=== PATIENT | female | born 1960 | race Caucasian/White ===

== ENCOUNTER 2022-11-17 16:22 | Inpatient (IN) | payer OTHER ==
[~2022-11-17] VITALS: Ht 154.9 cm; Wt 68.2 kg
[2022-11-17 16:32] VITALS: BP 140/91
[2022-11-17] MEDS ORDERED: OLANZAPINE20 M2 PO (16:46)
[2022-11-17] MEDS ORDERED: MELOXICAM7.5 MG PO (16:46)
[2022-11-17] MEDS ORDERED: BUSPAR5 MG PO (16:48)
[2022-11-17] MEDS ORDERED: LOSARTAN POTASS25 M1 PO (16:50)
[2022-11-17] MEDS ORDERED: MELATONIN5 M7 PO (16:51)
[2022-11-17] MEDS ORDERED: MEXILETINE HCL150 MG PO (16:51)
[2022-11-17] MEDS ORDERED: ALDACTONE25 MG PO (16:52)
[2022-11-17] MEDS ORDERED: ASPIRIN ADULT L81 M2 PO (16:52)
[2022-11-17] MEDS ORDERED: ESCITALOPRAM OX20 MG PO (16:53)
[2022-11-17] MEDS ORDERED: [UNRECOGNIZED DRUG - OTHER] PO (16:53)
[2022-11-17] MEDS ORDERED: CALCIUM PO (16:53)
[2022-11-17] MEDS ORDERED: Synthroid,Levo25 MCG PO (16:54)
[2022-11-17] MEDS ORDERED: FAMOTIDINE20 M1 PO (16:54)
[2022-11-17] MEDS ORDERED: METOPROLOL SUCC50 M1 PO (16:55)
[2022-11-17] MEDS ORDERED: SIMVASTATIN40 MG PO (16:55)
[2022-11-17] MEDS ORDERED: GABAPENTIN100 M2 PO (16:55)
[2022-11-17] MEDS ORDERED: HYDROXYZINE PAM25 M1 PO (16:56)
[2022-11-17] MEDS ORDERED: GOOD SENSE ALLE10 M2 PO (16:56)
[2022-11-17] MEDS ORDERED: FUROSEMIDE20 M1 PO (16:57)
[2022-11-17] MEDS ORDERED: VITAMIN E180 M1 PO (16:58)
[2022-11-17] MEDS ORDERED: DONEPEZIL HYDROC5 MG PO (16:58)
[2022-11-17] MEDS ORDERED: COLESTIPOL HYDRO1 GM PO (16:59)
[2022-11-17] MEDS ORDERED: ZINC GLUCONATE50 MG PO (16:59)
[2022-11-17] MEDS ORDERED: ASCORBIC ACID500 M2 PO (17:00)
[2022-11-17 17:09] LABS: BASO % 0.5 % (0.0-1.0); EOS % 0.7 % (1.0-4.0); HEMATOCRIT 37.2 % (37.0-47.0); LYMPH # 1.6 10*3/uL (1.3-4.4); LYMPH % 29.4 % (27.0-41.0); MEAN CELL VOLUME 86.9 fl (81.0-99.0); MEAN CORPUSCULAR HGB 27.8 pg (27.0-31.0); MONO # 0.8 10*3/uL (0.1-1.0); MONO % 13.7 % (3.0-9.0); NEUT % 55.5 % (47.0-73.0); PLATELET COUNT AUTOMATED 270 10*3/uL (130-400); RED BLOOD COUNT 4.28 10*6/uL (4.10-5.10); RED CELL DISTRI WIDTH 12.4 % (0-14.5); WHITE BLOOD COUNT 5.5 10*3/uL (4.8-10.8)
[2022-11-17 17:22] LABS: ACT PARTIAL THROMBO TIME 28.2 SECONDS (20.0-32.1)
[2022-11-17 17:24] LABS: ALKALINE PHOSPHATASE 67 U/L (46-116); BUN 6 mg/dl (9-23); CHLORIDE 93 mmol/L (98-107); POTASSIUM 4.2 mmol/L (3.4-5.1); SGPT/ALT 22 U/L (10-49); TOTAL PROTEIN 6.7 gm/dL (6.0-8.0)
[2022-11-17 20:29] VITALS: BP 143/93
[2022-11-17] MEDS ORDERED: RESTASIS1 EACH OP (20:30)
[2022-11-17 20:34] VITALS: BP 148/71
[2022-11-18] VITALS: BP 134/75
[2022-11-18 06:13] LABS: HEMATOCRIT 36.3 % (37.0-47.0); MEAN CELL VOLUME 84.8 fl (81.0-99.0); MEAN CORPUSCULAR HGB 27.8 pg (27.0-31.0); MEAN CORPUSCULAR HGB CONC 32.8 g/dl (33.0-37.0); MEAN PLATELET VOLUME 10.5 fl (9.6-12.3); PLATELET COUNT AUTOMATED 268 10*3/uL (130-400); RED BLOOD COUNT 4.28 10*6/uL (4.10-5.10); RED CELL DISTRI WIDTH 12.1 % (0-14.5); WHITE BLOOD COUNT 7.3 10*3/uL (4.8-10.8)
[2022-11-18 06:24] LABS: MANUAL DIFF REFLEX YES
[2022-11-18 07:01] LABS: PLATELET SUFFICIENCY NORMAL (NORMAL); TOTAL CELLS COUNTED 100 #CELLS
[2022-11-18 08:00] VITALS: BP 111/48
[2022-11-18 08:50] LABS: ALKALINE PHOSPHATASE 61 U/L (46-116); CHLORIDE 91 mmol/L (98-107); CHOLESTEROL 138 mg/dL (<200); LDL CHOLESTEROL 60 mg/dL (9-159); POTASSIUM 4.2 mmol/L (3.4-5.1); SGPT/ALT 19 U/L (10-49); THYROID STIM HORMONE (HS) 0.756 uIU/ml (0.550-4.780); TOTAL PROTEIN 6.5 gm/dL (6.0-8.0); TRIGLYCERIDES 56 mg/dl (<150)
[2022-11-18 08:53] LABS: BUN < 5 mg/dl (9-23)
[2022-11-18 12:00] VITALS: BP 111/47
[2022-11-18] MEDS ORDERED: PREDNISONE10 MG PO (14:10)
[2022-11-18] MEDS ORDERED: CYCLOBENZAPRINE10 MG PO (14:10)
== END 2022-11-18 16:14 | disposition home or self-care (01) | DRG 351 ==
LOC: ED 16:22 → EDHOLD 18:44 → 4E 18:44
PROVIDERS: Emergency Medicine; Internal Medicine; ADMIT Family Medicine; ATTEND Family Medicine
DX: M13.851 Other specified arthritis, right hip (principal); E87.1 Hypo-osmolality and hyponatremia; I49.9 Cardiac arrhythmia, unspecified; F41.9 Anxiety disorder, unspecified; I50.9 Heart failure, unspecified; E03.9 Hypothyroidism, unspecified; F03.A0 Unspecified dementia, mild, without behavioral disturbance, psychotic disturbance, mood disturbance, and anxiety; E87.8 Other disorders of electrolyte and fluid balance, not elsewhere classified; R73.9 Hyperglycemia, unspecified; D35.00 Benign neoplasm of unspecified adrenal gland; D64.9 Anemia, unspecified; F33.9 Major depressive disorder, recurrent, unspecified; G62.9 Polyneuropathy, unspecified; I11.0 Hypertensive heart disease with heart failure; E78.2 Mixed hyperlipidemia; E78.5 Hyperlipidemia, unspecified; R26.2 Difficulty in walking, not elsewhere classified; M62.830 Muscle spasm of back; Z98.891 History of uterine scar from previous surgery; Z80.3 Family history of malignant neoplasm of breast; Z88.0 Allergy status to penicillin; Z79.82 Long term (current) use of aspirin; Z79.899 Other long term (current) drug therapy

== ENCOUNTER 2022-11-29 13:02 | Inpatient (IN) | payer OTHER ==
[~2022-11-29] VITALS: Ht 154.9 cm; Wt 72.6 kg
[~2022-11-29 13:02] MED LIST: ALDACTONE25 MG PO; ASCORBIC ACID500 M2 PO; ASPIRIN ADULT L81 M2 PO; BUSPAR5 MG PO; CALCIUM PO; COLESTIPOL HYDRO1 GM PO; CYCLOBENZAPRINE10 MG PO; DONEPEZIL HYDROC5 MG PO; ESCITALOPRAM OX20 MG PO; FAMOTIDINE20 M1 PO; FUROSEMIDE20 M1 PO; GABAPENTIN100 M2 PO; GOOD SENSE ALLE10 M2 PO; HYDROXYZINE PAM25 M1 PO; LOSARTAN POTASS25 M1 PO; MELATONIN5 M7 PO; MELOXICAM7.5 MG PO; METOPROLOL SUCC50 M1 PO; MEXILETINE HCL150 MG PO; OLANZAPINE20 M2 PO; PREDNISONE10 MG PO; RESTASIS1 EACH OP; SIMVASTATIN40 MG PO; Synthroid,Levo25 MCG PO; VITAMIN E180 M1 PO; ZINC GLUCONATE50 MG PO; [UNRECOGNIZED DRUG - OTHER] PO
[2022-11-29 13:34] VITALS: BP 139/63
[2022-11-29 13:52] LABS: BASO % 0.1 % (0.0-1.0); EOS # 0.1 10*3/uL (0.0-0.4); EOS % 0.6 % (1.0-4.0); HEMATOCRIT 34.5 % (37.0-47.0); LYMPH # 1.1 10*3/uL (1.3-4.4); LYMPH % 9.8 % (27.0-41.0); MEAN CELL VOLUME 78.8 fl (81.0-99.0); MEAN CORPUSCULAR HGB 28.5 pg (27.0-31.0); MEAN CORPUSCULAR HGB CONC 36.2 g/dl (33.0-37.0); MEAN PLATELET VOLUME 9.4 fl (9.6-12.3); MONO # 0.9 10*3/uL (0.1-1.0); MONO % 7.8 % (3.0-9.0); NEUT # 9.3 10*3/uL (2.3-7.9); NEUT % 81.3 % (47.0-73.0); PLATELET COUNT AUTOMATED 282 10*3/uL (130-400); RED BLOOD COUNT 4.38 10*6/uL (4.10-5.10); RED CELL DISTRI WIDTH 11.5 % (0-14.5); WHITE BLOOD COUNT 11.4 10*3/uL (4.8-10.8)
[2022-11-29 14:07] LABS: ALKALINE PHOSPHATASE 72 U/L (46-116); POTASSIUM 3.9 mmol/L (3.4-5.1); SGPT/ALT 27 U/L (10-49); TOTAL PROTEIN 6.9 gm/dL (6.0-8.0)
[2022-11-29 14:09] LABS: BUN < 5 mg/dl (9-23)
[2022-11-29 14:11] LABS: CHLORIDE 72 mmol/L (98-107)
[2022-11-29 14:33] VITALS: BP 148/97
[2022-11-29] MEDS ORDERED: HYDROXYZINE PAM25 M1 PO (15:02)
[2022-11-29 16:19] VITALS: BP 143/68
[2022-11-29 16:23] LABS: BILIRUBIN Negative (Negative); BLOOD Negative (Negative); CLARITY Clear (Clear); COLOR Yellow (Yellow); GLUCOSE Negative (Negative); KETONE 2+ (Negative); LEUKO ESTERASE Negative (Negative); NITRITE Negative (Negative); PH 7.5 (4.5-8.0); SPECIFIC GRAVITY <= 1.005 (1.001-1.030); UROBILINOGEN 0.2 E.U./dl (0.0-1.0)
[2022-11-29 16:36] LABS: URINE CHLORIDE, RANDOM < 20 mmol/L
[2022-11-29 16:39] LABS: BACTERIA 1+; EPITHELIAL CELLS 0-2; WBC 0-2 wbc/hpf (0-5)
[2022-11-29 18:05] VITALS: BP 142/70
[2022-11-29 18:19] LABS: BUN < 5 mg/dl (9-23); POTASSIUM 4.1 mmol/L (3.4-5.1)
[2022-11-29 18:23] LABS: CHLORIDE 74 mmol/L (98-107)
[2022-11-29 18:30] VITALS: BP 112/58
[2022-11-29] MEDS ORDERED: METAMUCIL660 GM PO (18:56)
[2022-11-29] MEDS ORDERED: VITAMIN A2400 MCG PO (19:02)
[2022-11-29] MEDS ORDERED: VITAMIN C500 M8 PO (19:02)
[2022-11-29 20:00] VITALS: BP 130/72
[2022-11-29 22:34] LABS: CHLORIDE 76 mmol/L (98-107); POTASSIUM 3.9 mmol/L (3.4-5.1)
[2022-11-29 22:39] LABS: BUN < 5 mg/dl (9-23)
[2022-11-30] VITALS: BP 120/60
[2022-11-30 02:02] LABS: CHLORIDE 76 mmol/L (98-107); POTASSIUM 3.6 mmol/L (3.4-5.1)
[2022-11-30 02:03] LABS: BUN < 5 mg/dl (9-23)
[2022-11-30 04:00] VITALS: BP 134/56
[2022-11-30 06:13] LABS: BASO % 0.1 % (0.0-1.0); EOS % 0.1 % (1.0-4.0); HEMATOCRIT 33.3 % (37.0-47.0); LYMPH # 0.9 10*3/uL (1.3-4.4); LYMPH % 6.3 % (27.0-41.0); MEAN CELL VOLUME 80.2 fl (81.0-99.0); MEAN CORPUSCULAR HGB 28.4 pg (27.0-31.0); MEAN CORPUSCULAR HGB CONC 35.4 g/dl (33.0-37.0); MEAN PLATELET VOLUME 9.6 fl (9.6-12.3); MONO # 1.2 10*3/uL (0.1-1.0); MONO % 8.2 % (3.0-9.0); NEUT # 12.4 10*3/uL (2.3-7.9); NEUT % 84.8 % (47.0-73.0); PLATELET COUNT AUTOMATED 268 10*3/uL (130-400); RED BLOOD COUNT 4.15 10*6/uL (4.10-5.10); RED CELL DISTRI WIDTH 11.8 % (0-14.5); WHITE BLOOD COUNT 14.6 10*3/uL (4.8-10.8)
[2022-11-30 06:41] LABS: CHLORIDE 80 mmol/L (98-107); POTASSIUM 3.9 mmol/L (3.4-5.1)
[2022-11-30 06:48] LABS: BUN < 5 mg/dl (9-23)
[2022-11-30 07:10] LABS: CHLORIDE 80 mmol/L (98-107); POTASSIUM 3.9 mmol/L (3.4-5.1)
[2022-11-30 07:14] LABS: BUN < 5 mg/dl (9-23)
[2022-11-30 08:00] VITALS: BP 115/64
[2022-11-30 10:38] LABS: CHLORIDE 80 mmol/L (98-107); POTASSIUM 4.2 mmol/L (3.4-5.1)
[2022-11-30 10:39] LABS: BUN < 5 mg/dl (9-23)
[2022-11-30 12:00] VITALS: BP 112/56
[2022-11-30 15:46] LABS: BUN 5 mg/dl (9-23); CHLORIDE 83 mmol/L (98-107); POTASSIUM 4.1 mmol/L (3.4-5.1)
[2022-11-30 16:00] VITALS: BP 112/58
[2022-11-30 20:00] VITALS: BP 112/45
[2022-11-30 20:23] LABS: BUN 5 mg/dl (9-23); CHLORIDE 83 mmol/L (98-107); POTASSIUM 3.9 mmol/L (3.4-5.1)
[2022-12-01] VITALS: BP 112/68
[2022-12-01 04:00] VITALS: BP 138/67
[2022-12-01 05:38] LABS: CHLORIDE 92 mmol/L (98-107); POTASSIUM 4.1 mmol/L (3.4-5.1)
[2022-12-01 05:40] LABS: BUN < 5 mg/dl (9-23)
[2022-12-01 06:23] LABS: BASO % 0.1 % (0.0-1.0); EOS % 0.1 % (1.0-4.0); HEMATOCRIT 32.7 % (37.0-47.0); LYMPH # 1.1 10*3/uL (1.3-4.4); LYMPH % 9.7 % (27.0-41.0); MEAN CORPUSCULAR HGB 28.3 pg (27.0-31.0); MEAN CORPUSCULAR HGB CONC 33.9 g/dl (33.0-37.0); MEAN PLATELET VOLUME 10.3 fl (9.6-12.3); MONO # 1.3 10*3/uL (0.1-1.0); MONO % 11.8 % (3.0-9.0); NEUT # 8.5 10*3/uL (2.3-7.9); NEUT % 77.9 % (47.0-73.0); PLATELET COUNT AUTOMATED 282 10*3/uL (130-400); RED BLOOD COUNT 3.92 10*6/uL (4.10-5.10); RED CELL DISTRI WIDTH 12.5 % (0-14.5); WHITE BLOOD COUNT 10.8 10*3/uL (4.8-10.8)
[2022-12-01 06:27] LABS: MEAN CELL VOLUME 83.4 fl (81.0-99.0)
[2022-12-01 08:00] VITALS: BP 136/71
[2022-12-01 09:14] LABS: CHLORIDE 89 mmol/L (98-107)
[2022-12-01 09:18] LABS: BUN < 5 mg/dl (9-23)
[2022-12-01 12:00] VITALS: BP 131/67
[2022-12-01 15:11] LABS: CHLORIDE 90 mmol/L (98-107); POTASSIUM 4.5 mmol/L (3.4-5.1)
[2022-12-01 15:12] LABS: BUN < 5 mg/dl (9-23)
[2022-12-01 16:00] VITALS: BP 127/55
[2022-12-01 20:00] VITALS: BP 127/67
[2022-12-02] VITALS: BP 147/79
[2022-12-02 04:00] VITALS: BP 130/76
[2022-12-02 06:01] LABS: CHLORIDE 90 mmol/L (98-107); POTASSIUM 4.6 mmol/L (3.4-5.1)
[2022-12-02 06:05] LABS: BASO % 0.2 % (0.0-1.0); EOS % 0.2 % (1.0-4.0); HEMATOCRIT 31.7 % (37.0-47.0); LYMPH # 1.5 10*3/uL (1.3-4.4); LYMPH % 9.5 % (27.0-41.0); MEAN CELL VOLUME 84.5 fl (81.0-99.0); MEAN CORPUSCULAR HGB 28.3 pg (27.0-31.0); MEAN CORPUSCULAR HGB CONC 33.4 g/dl (33.0-37.0); MEAN PLATELET VOLUME 10.1 fl (9.6-12.3); MONO # 1.4 10*3/uL (0.1-1.0); MONO % 8.6 % (3.0-9.0); NEUT # 13.2 10*3/uL (2.3-7.9); NEUT % 81.1 % (47.0-73.0); PLATELET COUNT AUTOMATED 306 10*3/uL (130-400); RED BLOOD COUNT 3.75 10*6/uL (4.10-5.10); RED CELL DISTRI WIDTH 12.6 % (0-14.5); WHITE BLOOD COUNT 16.2 10*3/uL (4.8-10.8)
[2022-12-02 06:12] LABS: BUN < 5 mg/dl (9-23)
[2022-12-02 08:00] VITALS: BP 151/66
[2022-12-02 12:00] VITALS: BP 152/61
[2022-12-02 15:37] LABS: BUN 5 mg/dl (9-23); CHLORIDE 90 mmol/L (98-107); POTASSIUM 4.5 mmol/L (3.4-5.1)
[2022-12-02 16:00] VITALS: BP 113/69
[2022-12-02 20:00] VITALS: BP 155/71
[2022-12-03] VITALS: BP 132/73
[2022-12-03 06:14] LABS: BASO % 0.1 % (0.0-1.0); HEMATOCRIT 34.5 % (37.0-47.0); LYMPH # 0.5 10*3/uL (1.3-4.4); LYMPH % 4.2 % (27.0-41.0); MEAN CELL VOLUME 84.1 fl (81.0-99.0); MEAN CORPUSCULAR HGB 27.8 pg (27.0-31.0); MEAN PLATELET VOLUME 9.9 fl (9.6-12.3); MONO # 0.7 10*3/uL (0.1-1.0); MONO % 5.8 % (3.0-9.0); NEUT % 89.5 % (47.0-73.0); PLATELET COUNT AUTOMATED 369 10*3/uL (130-400); RED CELL DISTRI WIDTH 12.7 % (0-14.5); WHITE BLOOD COUNT 11.2 10*3/uL (4.8-10.8)
[2022-12-03 06:52] LABS: CHLORIDE 90 mmol/L (98-107); POTASSIUM 4.9 mmol/L (3.4-5.1)
[2022-12-03 07:20] LABS: BUN < 5 mg/dl (9-23)
[2022-12-03 08:00] VITALS: BP 100/77
[2022-12-03 12:00] VITALS: BP 117/55
[2022-12-03 16:00] VITALS: BP 121/62
[2022-12-03 20:00] VITALS: BP 102/63
[2022-12-04] VITALS: BP 136/62
[2022-12-04 08:00] VITALS: BP 135/68
[2022-12-04 09:14] LABS: BUN 10 mg/dl (9-23); CHLORIDE 93 mmol/L (98-107); POTASSIUM 5.1 mmol/L (3.4-5.1)
[2022-12-04 12:00] VITALS: BP 113/59
[2022-12-04 16:00] VITALS: BP 127/64
[2022-12-04 17:41] LABS: BUN 10 mg/dl (9-23); CHLORIDE 96 mmol/L (98-107); POTASSIUM 4.7 mmol/L (3.4-5.1)
[2022-12-04 20:00] VITALS: BP 132/69
[2022-12-05] VITALS: BP 124/78
[2022-12-05 06:50] LABS: BASO % 0.1 % (0.0-1.0); HEMATOCRIT 34.2 % (37.0-47.0); LYMPH # 1.7 10*3/uL (1.3-4.4); LYMPH % 14.2 % (27.0-41.0); MEAN CELL VOLUME 85.7 fl (81.0-99.0); MEAN CORPUSCULAR HGB 27.6 pg (27.0-31.0); MEAN CORPUSCULAR HGB CONC 32.2 g/dl (33.0-37.0); MEAN PLATELET VOLUME 9.4 fl (9.6-12.3); MONO # 1.1 10*3/uL (0.1-1.0); MONO % 9.4 % (3.0-9.0); NEUT # 8.9 10*3/uL (2.3-7.9); NEUT % 75.8 % (47.0-73.0); PLATELET COUNT AUTOMATED 455 10*3/uL (130-400); RED BLOOD COUNT 3.99 10*6/uL (4.10-5.10); RED CELL DISTRI WIDTH 13.3 % (0-14.5); WHITE BLOOD COUNT 11.8 10*3/uL (4.8-10.8)
[2022-12-05 07:04] LABS: BUN 9 mg/dl (9-23); CHLORIDE 92 mmol/L (98-107); POTASSIUM 4.4 mmol/L (3.4-5.1)
[2022-12-05 08:00] VITALS: BP 138/71
[2022-12-05 12:00] VITALS: BP 113/51
[2022-12-05 16:00] VITALS: BP 132/71
[2022-12-05 20:00] VITALS: BP 141/67
[2022-12-06] VITALS: BP 139/66
[2022-12-06 06:24] LABS: BASO % 0.1 % (0.0-1.0); HEMATOCRIT 34.2 % (37.0-47.0); LYMPH # 1.8 10*3/uL (1.3-4.4); LYMPH % 15.1 % (27.0-41.0); MEAN CELL VOLUME 86.8 fl (81.0-99.0); MEAN CORPUSCULAR HGB 27.9 pg (27.0-31.0); MEAN CORPUSCULAR HGB CONC 32.2 g/dl (33.0-37.0); MEAN PLATELET VOLUME 9.7 fl (9.6-12.3); MONO % 8.7 % (3.0-9.0); NEUT # 8.7 10*3/uL (2.3-7.9); NEUT % 75.4 % (47.0-73.0); PLATELET COUNT AUTOMATED 510 10*3/uL (130-400); RED BLOOD COUNT 3.94 10*6/uL (4.10-5.10); RED CELL DISTRI WIDTH 13.2 % (0-14.5); WHITE BLOOD COUNT 11.6 10*3/uL (4.8-10.8)
[2022-12-06 08:00] VITALS: BP 115/52
[2022-12-06 08:34] LABS: BUN 14 mg/dl (9-23); CHLORIDE 98 mmol/L (98-107); POTASSIUM 4.5 mmol/L (3.4-5.1)
[2022-12-06 12:00] VITALS: BP 119/89
[2022-12-06] MEDS ORDERED: PREDNISONE10 MG PO (14:52)
[2022-12-06] MEDS ORDERED: DOXYCYCLINE HY100 M3 PO (14:52)
[2022-12-06] MEDS ORDERED: ALDACTONE25 MG PO (14:52)
[2022-12-06] MEDS ORDERED: FUROSEMIDE20 M1 PO (14:52)
[2022-12-06] MEDS ORDERED: SODIUM CHLORI1000 M5 MC (14:52)
== END 2022-12-06 15:46 | disposition home or self-care (01) | DRG 426 ==
LOC: ED 13:02 → ICCU 14:37 → EDHOLD 14:37 → 5E 14:37 → EDHOLD 15:48 → ICCU 17:31 → 5E 12-02 11:30
PROVIDERS: Family Medicine; Internal Medicine; Internal Medicine Nephrology; Occupational Therapist; Student in an Organized Health Care Education/Training Program; ADMIT Internal Medicine; ATTEND Internal Medicine
DX: E22.2 Syndrome of inappropriate secretion of antidiuretic hormone (principal); A41.9 Sepsis, unspecified organism; J15.6 Pneumonia due to other Gram-negative bacteria; E87.8 Other disorders of electrolyte and fluid balance, not elsewhere classified; R74.01 Elevation of levels of liver transaminase levels; R29.6 Repeated falls; Z20.822 Contact with and (suspected) exposure to COVID-19; D50.9 Iron deficiency anemia, unspecified; R73.9 Hyperglycemia, unspecified; G62.9 Polyneuropathy, unspecified; H10.33 Unspecified acute conjunctivitis, bilateral; I11.0 Hypertensive heart disease with heart failure; F03.90 Unspecified dementia, unspecified severity, without behavioral disturbance, psychotic disturbance, mood disturbance, and anxiety; F32.A Depression, unspecified; F41.9 Anxiety disorder, unspecified; E78.5 Hyperlipidemia, unspecified; E03.9 Hypothyroidism, unspecified; Z98.891 History of uterine scar from previous surgery; Z80.3 Family history of malignant neoplasm of breast; Z79.82 Long term (current) use of aspirin; Z79.899 Other long term (current) drug therapy; Z88.0 Allergy status to penicillin; I50.32 Chronic diastolic (congestive) heart failure

== ENCOUNTER → 2023-04-10 | Outpatient (CLI) | payer OTHER ==
[~2023-04-10] MED LIST changes: +DOXYCYCLINE HY100 M3 PO; +METAMUCIL660 GM PO; +Oscal,Oyster S500 MG PO; +SODIUM CHLORI1000 M5 MC; +VITAMIN A2400 MCG PO; +VITAMIN C500 M8 PO; +VITAMIN D3125 MC1 PO
== END | disposition home or self-care (01) ==
LOC: ORTHO 01:21
PROVIDERS: ATTEND Orthopaedic Surgery
DX: S32.591D Other specified fracture of right pubis, subsequent encounter for fracture with routine healing (principal); X58.XXXD Exposure to other specified factors, subsequent encounter

== ENCOUNTER 2023-04-22 09:27 | Inpatient (IN) | payer OTHER ==
[~2023-04-22] VITALS: Ht 154.9 cm; Wt 67.3 kg
[2023-04-22 09:31] VITALS: BP 112/72
[2023-04-22] MEDS ORDERED: ASPIRIN81 M1 PO (09:34)
[2023-04-22] MEDS ORDERED: BUSPAR5 MG PO (09:34)
[2023-04-22] MEDS ORDERED: LEXAPRO20 MG PO (09:35)
[2023-04-22] MEDS ORDERED: DONEPEZIL HYDROC5 MG PO (09:35)
[2023-04-22] MEDS ORDERED: MICRONIZED COLES1 GM PO (09:35)
[2023-04-22] MEDS ORDERED: LASIX20 MG PO (09:36)
[2023-04-22] MEDS ORDERED: HYDROXYZINE PAM25 M1 PO (09:36)
[2023-04-22] MEDS ORDERED: GABAPENTIN100 M2 PO (09:36)
[2023-04-22] MEDS ORDERED: GOOD SENSE ACID20 MG PO (09:36)
[2023-04-22] MEDS ORDERED: CLARITIN10 MG PO (09:37)
[2023-04-22] MEDS ORDERED: LOSARTAN POTASS25 M1 PO (09:37)
[2023-04-22] MEDS ORDERED: LEVOTHYROXINE25 MCG PO (09:37)
[2023-04-22] MEDS ORDERED: MELOXICAM7.5 MG PO (09:38)
[2023-04-22] MEDS ORDERED: METAMUCIL0.4 G1 PO (09:38)
[2023-04-22 10:02] LABS: BASO % 0.3 % (0.0-1.0); HEMATOCRIT 35.5 % (37.0-47.0); LYMPH # 0.6 10*3/uL (1.3-4.4); LYMPH % 6.8 % (27.0-41.0); MEAN CELL VOLUME 86.2 fl (81.0-99.0); MEAN CORPUSCULAR HGB 28.4 pg (27.0-31.0); MEAN PLATELET VOLUME 9.8 fl (9.6-12.3); MONO # 1.1 10*3/uL (0.1-1.0); MONO % 11.3 % (3.0-9.0); NEUT # 7.6 10*3/uL (2.3-7.9); NEUT % 81.3 % (47.0-73.0); PLATELET COUNT AUTOMATED 324 10*3/uL (130-400); RED BLOOD COUNT 4.12 10*6/uL (4.10-5.10); RED CELL DISTRI WIDTH 12.3 % (0-14.5); WHITE BLOOD COUNT 9.3 10*3/uL (4.8-10.8)
[2023-04-22 10:26] LABS: ALKALINE PHOSPHATASE 134 U/L (46-116); BUN 6 mg/dl (9-23); CHLORIDE 90 mmol/L (98-107); POTASSIUM 4.8 mmol/L (3.4-5.1); SGPT/ALT 8 U/L (10-49); TOTAL PROTEIN 7.2 gm/dL (6.0-8.0)
[2023-04-22 12:00] VITALS: BP 157/58
[2023-04-22 15:40] VITALS: BP 114/70
[2023-04-22 18:24] VITALS: BP 119/50
[2023-04-22 20:00] VITALS: BP 106/53
[2023-04-23] VITALS: BP 100/45
[2023-04-23 06:18] LABS: BUN 9 mg/dl (9-23); CHLORIDE 92 mmol/L (98-107); POTASSIUM 4.5 mmol/L (3.4-5.1)
[2023-04-23 06:19] LABS: BASO # 0.1 10*3/uL (0.0-0.1); BASO % 0.9 % (0.0-1.0); EOS % 0.2 % (1.0-4.0); HEMATOCRIT 32.7 % (37.0-47.0); LYMPH # 1.2 10*3/uL (1.3-4.4); LYMPH % 21.9 % (27.0-41.0); MEAN CELL VOLUME 85.6 fl (81.0-99.0); MEAN CORPUSCULAR HGB 28.3 pg (27.0-31.0); MEAN PLATELET VOLUME 10.1 fl (9.6-12.3); MONO # 0.8 10*3/uL (0.1-1.0); MONO % 15.1 % (3.0-9.0); NEUT # 3.4 10*3/uL (2.3-7.9); NEUT % 61.7 % (47.0-73.0); PLATELET COUNT AUTOMATED 322 10*3/uL (130-400); RED BLOOD COUNT 3.82 10*6/uL (4.10-5.10); RED CELL DISTRI WIDTH 12.3 % (0-14.5); WHITE BLOOD COUNT 5.6 10*3/uL (4.8-10.8)
[2023-04-23 08:00] VITALS: BP 107/55
[2023-04-23 12:00] VITALS: BP 118/57
[2023-04-23 16:00] VITALS: BP 106/55
[2023-04-23 17:31] LABS: BUN 6 mg/dl (9-23); CHLORIDE 91 mmol/L (98-107); POTASSIUM 4.3 mmol/L (3.4-5.1)
[2023-04-23 20:00] VITALS: BP 137/64
[2023-04-24] VITALS: BP 125/61
[2023-04-24 06:51] LABS: BASO % 0.5 % (0.0-1.0); EOS % 0.2 % (1.0-4.0); LYMPH # 1.3 10*3/uL (1.3-4.4); LYMPH % 23.5 % (27.0-41.0); MEAN CELL VOLUME 88.5 fl (81.0-99.0); MEAN CORPUSCULAR HGB 28.1 pg (27.0-31.0); MEAN CORPUSCULAR HGB CONC 31.8 g/dl (33.0-37.0); MEAN PLATELET VOLUME 9.8 fl (9.6-12.3); MONO # 0.6 10*3/uL (0.1-1.0); MONO % 10.5 % (3.0-9.0); NEUT # 3.7 10*3/uL (2.3-7.9); NEUT % 64.9 % (47.0-73.0); PLATELET COUNT AUTOMATED 344 10*3/uL (130-400); RED BLOOD COUNT 3.84 10*6/uL (4.10-5.10); RED CELL DISTRI WIDTH 12.3 % (0-14.5); WHITE BLOOD COUNT 5.7 10*3/uL (4.8-10.8)
[2023-04-24 07:02] LABS: BUN 6 mg/dl (9-23); CHLORIDE 93 mmol/L (98-107); POTASSIUM 4.8 mmol/L (3.4-5.1)
[2023-04-24 08:00] VITALS: BP 157/58
[2023-04-24 12:00] VITALS: BP 138/55
[2023-04-24 16:00] VITALS: BP 143/62
[2023-04-24 20:00] VITALS: BP 131/70
[2023-04-25] VITALS: BP 128/71
[2023-04-25 07:21] LABS: BASO # 0.1 10*3/uL (0.0-0.1); BASO % 0.8 % (0.0-1.0); EOS % 0.2 % (1.0-4.0); HEMATOCRIT 33.1 % (37.0-47.0); LYMPH # 1.4 10*3/uL (1.3-4.4); LYMPH % 22.5 % (27.0-41.0); MEAN CELL VOLUME 87.1 fl (81.0-99.0); MEAN CORPUSCULAR HGB 27.9 pg (27.0-31.0); MEAN PLATELET VOLUME 9.7 fl (9.6-12.3); MONO # 0.7 10*3/uL (0.1-1.0); MONO % 10.8 % (3.0-9.0); NEUT % 65.4 % (47.0-73.0); PLATELET COUNT AUTOMATED 373 10*3/uL (130-400); RED CELL DISTRI WIDTH 12.5 % (0-14.5); WHITE BLOOD COUNT 6.1 10*3/uL (4.8-10.8)
[2023-04-25 07:56] LABS: CHLORIDE 99 mmol/L (98-107); POTASSIUM 4.2 mmol/L (3.4-5.1)
[2023-04-25 08:00] VITALS: BP 129/70
[2023-04-25 08:09] LABS: BUN < 5 mg/dl (9-23)
[2023-04-25] MEDS ORDERED: VITAMIN D350 MCG PO (08:35)
[2023-04-25] MEDS ORDERED: Humalog SQ (08:35)
[2023-04-25] MEDS ORDERED: HYDROCODONE-AC1 EAC1 PO (08:35)
[2023-04-25 12:00] VITALS: BP 143/77
[2023-04-25 16:00] VITALS: BP 145/72
[2023-04-25 20:00] VITALS: BP 149/64
[2023-04-26] VITALS: BP 139/60
[2023-04-26 07:00] LABS: BASO % 0.7 % (0.0-1.0); EOS % 0.3 % (1.0-4.0); HEMATOCRIT 33.3 % (37.0-47.0); LYMPH # 1.6 10*3/uL (1.3-4.4); LYMPH % 27.5 % (27.0-41.0); MEAN CELL VOLUME 86.3 fl (81.0-99.0); MEAN CORPUSCULAR HGB CONC 32.4 g/dl (33.0-37.0); MEAN PLATELET VOLUME 9.7 fl (9.6-12.3); MONO # 0.6 10*3/uL (0.1-1.0); MONO % 10.9 % (3.0-9.0); NEUT # 3.5 10*3/uL (2.3-7.9); NEUT % 60.4 % (47.0-73.0); PLATELET COUNT AUTOMATED 401 10*3/uL (130-400); RED BLOOD COUNT 3.86 10*6/uL (4.10-5.10); RED CELL DISTRI WIDTH 12.6 % (0-14.5); WHITE BLOOD COUNT 5.8 10*3/uL (4.8-10.8)
[2023-04-26 07:18] LABS: BUN 5 mg/dl (9-23); CHLORIDE 95 mmol/L (98-107); POTASSIUM 3.9 mmol/L (3.4-5.1)
[2023-04-26 08:00] VITALS: BP 132/59
[2023-04-26 12:00] VITALS: BP 118/50
[2023-04-26 15:55] VITALS: BP 133/60
[2023-04-26 20:00] VITALS: BP 153/60
[2023-04-27] VITALS: BP 132/69
[2023-04-27 08:00] VITALS: BP 137/61
[2023-04-27 12:00] VITALS: BP 141/61
== END 2023-04-27 15:00 | DRG 426 ==
LOC: ED 09:27 → 4E 11:43 → EDHOLD 11:43 → 4E 17:05
PROVIDERS: Emergency Medicine; Family Medicine; Internal Medicine; ADMIT Internal Medicine; ATTEND Internal Medicine
DX: E87.1 Hypo-osmolality and hyponatremia (principal); I11.0 Hypertensive heart disease with heart failure; F41.9 Anxiety disorder, unspecified; J45.909 Unspecified asthma, uncomplicated; F03.90 Unspecified dementia, unspecified severity, without behavioral disturbance, psychotic disturbance, mood disturbance, and anxiety; K21.9 Gastro-esophageal reflux disease without esophagitis; E78.5 Hyperlipidemia, unspecified; E03.9 Hypothyroidism, unspecified; G47.00 Insomnia, unspecified; G25.81 Restless legs syndrome; E11.40 Type 2 diabetes mellitus with diabetic neuropathy, unspecified; E11.65 Type 2 diabetes mellitus with hyperglycemia; D64.9 Anemia, unspecified; E87.8 Other disorders of electrolyte and fluid balance, not elsewhere classified; F32.9 Major depressive disorder, single episode, unspecified; I50.32 Chronic diastolic (congestive) heart failure; S32.810A Multiple fractures of pelvis with stable disruption of pelvic ring, initial encounter for closed fracture; M80.00XA Age-related osteoporosis with current pathological fracture, unspecified site, initial encounter for fracture; Z88.0 Allergy status to penicillin; Z98.891 History of uterine scar from previous surgery; Z83.3 Family history of diabetes mellitus; Z80.3 Family history of malignant neoplasm of breast; X58.XXXA Exposure to other specified factors, initial encounter; Y93.89 Activity, other specified; Y92.89 Other specified places as the place of occurrence of the external cause; Y99.8 Other external cause status

== ENCOUNTER 2023-05-08 15:46 | Inpatient (IN) | payer OTHER ==
[~2023-05-08] VITALS: Ht 154.9 cm; Wt 64.0 kg
[~2023-05-08 15:46] MED LIST changes: +ASPIRIN81 M1 PO; +CLARITIN10 MG PO; +GOOD SENSE ACID20 MG PO; +HYDROCODONE-AC1 EAC1 PO; +Humalog SQ; +LASIX20 MG PO; +LEVOTHYROXINE25 MCG PO; +LEXAPRO20 MG PO; +METAMUCIL0.4 G1 PO; +MICRONIZED COLES1 GM PO; +VITAMIN D350 MCG PO
[2023-05-08 16:29] LABS: BASO % 0.1 % (0.0-1.0); EOS % 0.1 % (1.0-4.0); HEMATOCRIT 36.7 % (37.0-47.0); LYMPH # 0.6 10*3/uL (1.3-4.4); LYMPH % 7.7 % (27.0-41.0); MEAN CORPUSCULAR HGB 27.9 pg (27.0-31.0); MEAN CORPUSCULAR HGB CONC 34.9 g/dl (33.0-37.0); MEAN PLATELET VOLUME 9.8 fl (9.6-12.3); MONO # 0.7 10*3/uL (0.1-1.0); MONO % 8.8 % (3.0-9.0); NEUT # 6.2 10*3/uL (2.3-7.9); PLATELET COUNT AUTOMATED 525 10*3/uL (130-400); RED BLOOD COUNT 4.59 10*6/uL (4.10-5.10); WHITE BLOOD COUNT 7.5 10*3/uL (4.8-10.8)
[2023-05-08 16:33] VITALS: BP 136/91
[2023-05-08 17:02] LABS: ALKALINE PHOSPHATASE 219 U/L (46-116); BUN 6 mg/dl (9-23); CHLORIDE 80 mmol/L (98-107); POTASSIUM 3.5 mmol/L (3.4-5.1); SGPT/ALT 17 U/L (10-49); TOTAL PROTEIN 7.4 gm/dL (6.0-8.0)
[2023-05-08] MEDS ORDERED: SODIUM CHLORI1000 M5 PO (20:31)
[2023-05-08] MEDS ORDERED: ROPINIROLE HY0.25 MG PO (20:32)
[2023-05-09 00:06] LABS: BUN 5 mg/dl (9-23); CHLORIDE 82 mmol/L (98-107); POTASSIUM 3.5 mmol/L (3.4-5.1)
[2023-05-09 00:11] LABS: FREE T4 1.92 ng/dl (0.89-1.76)
[2023-05-09 04:15] VITALS: BP 121/99
[2023-05-09 06:23] LABS: ALKALINE PHOSPHATASE 203 U/L (46-116); CHLORIDE 84 mmol/L (98-107); POTASSIUM 4.1 mmol/L (3.4-5.1); SGPT/ALT 15 U/L (10-49)
[2023-05-09 06:30] LABS: BASO % 0.1 % (0.0-1.0); BUN < 5 mg/dl (9-23); EOS % 0.3 % (1.0-4.0); HEMATOCRIT 37.5 % (37.0-47.0); LYMPH % 13.6 % (27.0-41.0); MEAN CELL VOLUME 81.3 fl (81.0-99.0); MEAN CORPUSCULAR HGB CONC 34.4 g/dl (33.0-37.0); MONO # 0.7 10*3/uL (0.1-1.0); MONO % 10.1 % (3.0-9.0); NEUT # 5.5 10*3/uL (2.3-7.9); NEUT % 75.6 % (47.0-73.0); PLATELET COUNT AUTOMATED 575 10*3/uL (130-400); RED BLOOD COUNT 4.61 10*6/uL (4.10-5.10); RED CELL DISTRI WIDTH 12.2 % (0-14.5); WHITE BLOOD COUNT 7.2 10*3/uL (4.8-10.8)
[2023-05-09 08:00] VITALS: BP 120/73
[2023-05-09 12:00] VITALS: BP 134/71
[2023-05-09 12:43] LABS: CHLORIDE 86 mmol/L (98-107); POTASSIUM 3.2 mmol/L (3.4-5.1)
[2023-05-09 12:44] LABS: BUN < 5 mg/dl (9-23)
[2023-05-09 16:22] LABS: BILIRUBIN Negative (Negative); BLOOD Negative (Negative); CLARITY Clear (Clear); COLOR Yellow (Yellow); GLUCOSE Negative (Negative); KETONE 4+ (Negative); LEUKO ESTERASE Trace (Negative); NITRITE Negative (Negative); PH 6.5 (4.5-8.0); SPECIFIC GRAVITY 1.015 (1.001-1.030); UROBILINOGEN 0.2 E.U./dl (0.0-1.0)
[2023-05-09 16:32] LABS: RBC 0-2 rbc/hpf (0-2)
[2023-05-09 16:33] LABS: BACTERIA 2+
[2023-05-09 17:10] VITALS: BP 144/67
[2023-05-09] MEDS ORDERED: ACETAMINOPHEN325 M2 PO (18:22)
[2023-05-09] MEDS ORDERED: BISACODYL10 MG R (18:25)
[2023-05-09] MEDS ORDERED: HYDROCODONE-AC1 EAC1 PO (18:28)
[2023-05-09] MEDS ORDERED: MOM30 M1 PO (18:30)
[2023-05-09] MEDS ORDERED: ONDANSETRON HYDR4 MG PO (18:35)
[2023-05-09 20:00] VITALS: BP 136/65
[2023-05-10] VITALS: BP 140/65
[2023-05-10 07:29] LABS: BASO % 0.4 % (0.0-1.0); HEMATOCRIT 32.9 % (37.0-47.0); LYMPH # 1.5 10*3/uL (1.3-4.4); LYMPH % 32.9 % (27.0-41.0); MEAN CELL VOLUME 83.3 fl (81.0-99.0); MEAN CORPUSCULAR HGB 28.4 pg (27.0-31.0); MEAN PLATELET VOLUME 9.8 fl (9.6-12.3); MONO # 0.6 10*3/uL (0.1-1.0); MONO % 13.2 % (3.0-9.0); NEUT # 2.4 10*3/uL (2.3-7.9); NEUT % 53.3 % (47.0-73.0); PLATELET COUNT AUTOMATED 496 10*3/uL (130-400); RED BLOOD COUNT 3.95 10*6/uL (4.10-5.10); RED CELL DISTRI WIDTH 12.5 % (0-14.5); WHITE BLOOD COUNT 4.5 10*3/uL (4.8-10.8)
[2023-05-10 07:55] LABS: CHLORIDE 87 mmol/L (98-107); POTASSIUM 3.8 mmol/L (3.4-5.1)
[2023-05-10 07:58] LABS: BUN < 5 mg/dl (9-23)
[2023-05-10 08:00] VITALS: BP 123/74
[2023-05-10 12:00] VITALS: BP 122/73
[2023-05-10 16:00] VITALS: BP 140/60
[2023-05-10 20:00] VITALS: BP 147/70
[2023-05-11] VITALS: BP 151/70
[2023-05-11 06:53] LABS: CHLORIDE 93 mmol/L (98-107); POTASSIUM 3.6 mmol/L (3.4-5.1)
[2023-05-11 07:09] LABS: BUN < 5 mg/dl (9-23)
[2023-05-11 08:00] VITALS: BP 132/99
[2023-05-11 12:00] VITALS: BP 131/73
[2023-05-11 16:00] VITALS: BP 129/62
[2023-05-11] MEDS ORDERED: RESTASIS1 EACH OP (16:02)
[2023-05-11 20:00] VITALS: BP 149/79
[2023-05-12] VITALS: BP 149/54
[2023-05-12 07:29] LABS: CHLORIDE 93 mmol/L (98-107); POTASSIUM 3.3 mmol/L (3.4-5.1)
[2023-05-12 07:38] LABS: BUN < 5 mg/dl (9-23)
[2023-05-12 08:00] VITALS: BP 144/85
[2023-05-12 12:00] VITALS: BP 147/82
[2023-05-12 16:00] VITALS: BP 137/80
[2023-05-12] MEDS ORDERED: OLANZAPINE20 M2 PO (17:19)
[2023-05-12 20:00] VITALS: BP 129/71
[2023-05-13] VITALS: BP 135/87
[2023-05-13 07:26] LABS: BASO % 0.5 % (0.0-1.0); LYMPH # 1.2 10*3/uL (1.3-4.4); MEAN CELL VOLUME 86.7 fl (81.0-99.0); MEAN CORPUSCULAR HGB 28.1 pg (27.0-31.0); MEAN CORPUSCULAR HGB CONC 32.4 g/dl (33.0-37.0); MEAN PLATELET VOLUME 10.2 fl (9.6-12.3); MONO # 0.7 10*3/uL (0.1-1.0); MONO % 12.1 % (3.0-9.0); NEUT # 3.6 10*3/uL (2.3-7.9); NEUT % 65.2 % (47.0-73.0); PLATELET COUNT AUTOMATED 420 10*3/uL (130-400); RED BLOOD COUNT 3.92 10*6/uL (4.10-5.10); RED CELL DISTRI WIDTH 12.8 % (0-14.5); WHITE BLOOD COUNT 5.5 10*3/uL (4.8-10.8)
[2023-05-13 07:41] LABS: CHLORIDE 92 mmol/L (98-107); POTASSIUM 4.1 mmol/L (3.4-5.1)
[2023-05-13 07:46] LABS: BUN < 5 mg/dl (9-23)
[2023-05-13 08:00] VITALS: BP 133/93
[2023-05-13 12:00] VITALS: BP 138/52
[2023-05-13 16:00] VITALS: BP 149/66
[2023-05-13 20:00] VITALS: BP 119/56
[2023-05-14] VITALS: BP 108/52
[2023-05-14 07:48] LABS: ALKALINE PHOSPHATASE 157 U/L (46-116); CHLORIDE 97 mmol/L (98-107); SGPT/ALT 16 U/L (10-49); TOTAL PROTEIN 6.3 gm/dL (6.0-8.0)
[2023-05-14 07:52] LABS: BUN < 5 mg/dl (9-23)
[2023-05-14 08:00] VITALS: BP 137/60
[2023-05-14 12:00] VITALS: BP 124/72
[2023-05-14 16:00] VITALS: BP 145/72
[2023-05-14 20:00] VITALS: BP 128/61
[2023-05-15 07:00] LABS: CHLORIDE 99 mmol/L (98-107); POTASSIUM 3.7 mmol/L (3.4-5.1)
[2023-05-15 07:01] LABS: BUN < 5 mg/dl (9-23)
[2023-05-15 08:00] VITALS: BP 127/67
[2023-05-15 12:00] VITALS: BP 122/62
[2023-05-15] MEDS ORDERED: SODIUM CHLORI1000 M5 PO (14:13)
[2023-05-15] MEDS ORDERED: GABAPENTIN100 M2 PO (14:13)
[2023-05-15] MEDS ORDERED: LOPRESSOR25 MG PO (14:13)
[2023-05-15] MEDS ORDERED: HYDROCODONE-AC1 EAC1 PO (14:13)
[2023-05-15 16:00] VITALS: BP 139/71
== END 2023-05-15 17:25 | DRG 426 ==
LOC: ED 15:46 → EDHOLD 18:32 → 4E 18:32
PROVIDERS: Family Medicine; Internal Medicine; Student in an Organized Health Care Education/Training Program; ADMIT Student in an Organized Health Care Education/Training Program; ATTEND Student in an Organized Health Care Education/Training Program
DX: E87.1 Hypo-osmolality and hyponatremia (principal); I50.9 Heart failure, unspecified; E11.65 Type 2 diabetes mellitus with hyperglycemia; E03.9 Hypothyroidism, unspecified; J45.909 Unspecified asthma, uncomplicated; F03.94 Unspecified dementia, unspecified severity, with anxiety; R29.6 Repeated falls; F03.93 Unspecified dementia, unspecified severity, with mood disturbance; E78.5 Hyperlipidemia, unspecified; F41.1 Generalized anxiety disorder; I11.0 Hypertensive heart disease with heart failure; G25.81 Restless legs syndrome; E11.40 Type 2 diabetes mellitus with diabetic neuropathy, unspecified; R00.0 Tachycardia, unspecified; R74.8 Abnormal levels of other serum enzymes; R94.31 Abnormal electrocardiogram [ECG] [EKG]; G93.49 Other encephalopathy; D75.839 Thrombocytosis, unspecified; G89.29 Other chronic pain; D72.818 Other decreased white blood cell count; Z79.4 Long term (current) use of insulin; Z88.0 Allergy status to penicillin; Z83.3 Family history of diabetes mellitus; Z80.3 Family history of malignant neoplasm of breast; Z79.899 Other long term (current) drug therapy